=== PATIENT | female | born 1980 | race Hispanic/Latino ===

== ENCOUNTER 2021-10-20 23:49 | Emergency (ER) | payer SELFPAY ==
[~2021-10-20] VITALS: Ht 162.6 cm; Wt 72.6 kg
[2021-10-21] MEDS ORDERED: BENZONATATE100 MG PO (02:38)
[2021-10-21] MEDS ORDERED: ZITHROMAX250 MG PO (02:38)
[2021-10-21] MEDS ORDERED: PREDNISONE20 MG PO (02:38)
== END 2021-10-21 02:49 | disposition home or self-care (01) ==
LOC: ED 23:49
DX: J18.9 Pneumonia, unspecified organism (principal); D50.9 Iron deficiency anemia, unspecified; Z20.822 Contact with and (suspected) exposure to COVID-19
CPT/HCPCS: 71045; 80053; 83605; 85025; 94640; 96365; 99285-25; A9270; C9803; J0696; J1100; J7030; U0003

== ENCOUNTER 2021-12-18 19:52 | Emergency (ER) | payer SELFPAY ==
[~2021-12-18] VITALS: Ht 162.6 cm; Wt 66.2 kg
[~2021-12-18 19:52] MED LIST: BENZONATATE100 MG PO; PREDNISONE20 MG PO; ZITHROMAX250 MG PO
== END 2021-12-18 22:12 | disposition left against medical advice (07) ==
LOC: ED 19:52
DX: A41.9 Sepsis, unspecified organism (principal); N39.0 Urinary tract infection, site not specified; E87.6 Hypokalemia; F15.10 Other stimulant abuse, uncomplicated; Z20.822 Contact with and (suspected) exposure to COVID-19
CPT/HCPCS: 36415; 51701; 71045; 80053; 81001; 83605; 83690; 83735; 84702; 85025; 99284-25; A9270; J7030; U0003